=== PATIENT | female | born 1985 | race Caucasian/White ===

== ENCOUNTER 2018-02-25 06:28 | Emergency (ER) | payer OTHER ==
[2018-02-25 06:38] VITALS: BP 128/90; PULSE 62; RESP 16; O2SAT 98
--- NOTE | 2018-02-25 08:40 | ED PDOC ---
HPI: Psych/Substance Abuse Time Seen by Provider: 02/25/18 07:09 Chief Complaint (Nursing): Psychiatric Evaluation Chief Complaint (Provider): Depression History Per: Patient History/Exam Limitations: no limitations Onset/Duration Of Symptoms: Hrs (overnight) Additional Complaint(s): Herminia Bolton is a 32 year old female, with no significant past medical history, who presents to the emergency department complaining of depression and suicidal thoughts onset overnight. Patient states she is currently going through a divorce and feels somewhat overwhelmed with family stressors. Patient has no children and denies any alcohol use, drug use, prior history of mental illness, depression, suicidal ideation or previous admissions of such. Patient denies any hallucinations and states since she's been in ER she is better and currently denies any suicidal ideation. No further medical complaints. PMD: [facility] Past Medical History Reviewed: Historical Data, Nursing Documentation, Vital Signs Vital Signs: Last Vital Signs Temp 98.0 F 02/25/18 06:30 Pulse 62 02/25/18 06:30 Resp 16 02/25/18 06:30 BP 128/90 02/25/18 06:30 Pulse Ox 98 02/25/18 06:30 - Medical History PMH: No Chronic Diseases - Surgical History Surgical History: No Surg Hx - Family History Family History: States: Unknown Family Hx - Social History Current smoker - smoking cessation education provided: No Alcohol: None Drugs: Denies - Allergies Allergies/Adverse Reactions: Allergies Allergy/AdvReac Type Severity Reaction Status Date / Time No Known Allergies Allergy Verified 02/25/18 06:38 Review of Systems ROS Statement: Except As Marked, All Systems Reviewed And Found Negative Psych: Positive for: Depression, Suicidal ideation Physical Exam - Reviewed Nursing Documentation Reviewed: Yes Vital Signs Reviewed: Yes - Physical Exam Appears: Positive for: No Acute Distress Head Exam: Positive for: ATRAUMATIC (No gross trauma), NORMAL INSPECTION, NORMOCEPHALIC Skin: Positive for: Normal Color, Warm, Dry Eye Exam: Positive for: Normal appearance, EOMI, PERRL Neck: Positive for: Painless ROM Cardiovascular/Chest: Positive for: Regular Rate, Rhythm. Negative for: Murmur Respiratory: Positive for: Normal Breath Sounds. Negative for: Respiratory Distress Gastrointestinal/Abdominal: Positive for: Normal Exam, Soft. Negative for: Tenderness Extremity: Positive for: Normal ROM (upper and lower extremities). Negative for : Deformity, Swelling Neurologic/Psych: Positive for: Alert, Oriented, Other (Fair insight, good eye contact, tearful but cooperative) - ECG O2 Sat by Pulse Oximetry: 98 (RA) Pulse Ox Interpretation: Normal Medical Decision Making Medical Decision Making: Time: 07:09 Initial Impression: Depression Initial Plan: --Reevaluation -Plan for urine , drug screen, and crisis evaluation. 09:00 -Patient was evaluated by crisis, diagnosis adjustment disorder. Upon provider reevaluation patient is feeling better, is medically stable, and requires no further treatment in the ED at this time. Patient will be discharged home. Counseling was provided and all questions were answered regarding diagnosis. There is agreement to discharge plan. Return if symptoms persist or worsen. ----- Scribe Attestation: Documented by Luis Cochran, acting as a scribe for Ab Ortega MD. Provider Scribe Attestation: All medical record entries made by the Scribe were at my direction and personally dictated by me. I have reviewed the chart and agree that the record accurately reflects my personal performance of the history, physical exam, medical decision making, and the department course for this patient. I have also personally directed, reviewed, and agree with the discharge instructions and disposition. Disposition - Clinical Impression Clinical Impression: Adjustment disorder - Disposition Disposition: Routine/Home Disposition Time: 09:00 Condition: STABLE Forms: Jaree (Bur[place]ian)
[2018-02-25 11:03] VITALS: TEMP 97.7
== END 2018-02-25 11:01 | disposition home or self-care (01) ==
LOC: H.ER 06:28
DX: F43.20 Adjustment disorder, unspecified (principal); F32.9 Major depressive disorder, single episode, unspecified